=== PATIENT | male | born 1970 ===

== ENCOUNTER → 2018-08-15 | Outpatient (CLI) | payer BC | LOC: BMCIMAGING 13:22 | PROVIDERS: ATTEND Family Medicine | DX: Z03.89 Encounter for observation for other suspected diseases and conditions ruled out (principal) ==

== ENCOUNTER → 2018-09-09 | Outpatient (CLI) | payer BC | LOC: BMCIMAGING 16:54 | PROVIDERS: ATTEND Orthopaedic Surgery Hand Surgery | DX: M79.641 Pain in right hand (principal); M19.011 Primary osteoarthritis, right shoulder; M19.012 Primary osteoarthritis, left shoulder ==

== ENCOUNTER → 2018-12-20 | Outpatient (CLI) | payer BC | LOC: BMCIMAGING 16:54 | PROVIDERS: ATTEND Emergency Medicine | DX: M79.671 Pain in right foot (principal); M79.89 Other specified soft tissue disorders ==